=== PATIENT | female | born 1995 | race Caucasian/White ===

== ENCOUNTER 2018-06-06 19:41 | Emergency (ER) | payer SELFPAY ==
[2018-06-06 19:44] VITALS: BP 122/66; PULSE 69; RESP 14; TEMP 36.7; O2SAT 98
--- NOTE | 2018-06-06 19:54 | ED.GENADUL_ITS ---
Discharge Plan Disposition Patient Disposition: HOME Condition: Fair Discharge Details Chief Complaint: Abd Prob Clinical Impression: Abdominal pain, Hypokalemia Primary Care Provider: Angi Chaparro ED Provider: Stacy Brothers Home Meds and New Rx's Prescriptions: Continue albuterol sulfate [ProAir HFA] 8.5 GM HFA aerosol inhaler 2 puff Inhalation Q6H PRN Qty: 1 RF: 6 ibuprofen 600 MG tablet 600 mg PO Q6H PRN Qty: 60 RF: 1 albuterol sulfate 2.5 MG/3 ML solution for nebulization 3 ml UPD QID PRN PRN (Reason: Wheezing) Qty: 60 RF: 0 fluticasone [Flovent HFA] 120 PUFF HFA aerosol inhaler 1 puff Inhalation BID RF: 0 albuterol sulfate 2.5 MG/3 ML solution for nebulization 3 ml UPD Q6H PRN PRNQty: 20 RF: 0 ibuprofen 800 MG tablet 800 mg PO TID PRNQty: 20 RF: 0 Discharge Instructions Instructions: Acute Diarrhea (ED), Abdominal Pain (ED) Additional Instructions: Encourage hydration. You may continue with Mylanta to help with symptomatic relief. Begin Omeprazole 20mg daily. Please follow up with your primary care within the next week for reevaluation if symptoms have not completely resolved. If you develop increased pain, fevers/chillls, inability to stay hydrated or other new/worsening symptoms please seek care urgently once again. Stand Alone Forms: Work Release Referrals: Angi Chaparro [Primary Care Provider] - Medical Decision Making Patient is a 23-year-old female, accompanied by [id number], with chief complaint of abdominal pain. She reports abdominal pain began insidiously last night. Reports it is fairly generalized, worse in the upper aspect of the abdomen on both the left and right sides. Denies any nausea or vomiting. No change in appetite. Denies any change in the discomfort associated with food intake. States she has had a number of loose bowel movements, presently for thus far today. States that she is noted streaks of blood in her stool. Heme -negative exam today. She denies any fevers or chills. Also reports she has been feeling presyncopal on and off today. She does appear slightly dehydrated on exam. Vital signs within normal limits. She appears nontoxic. Patient has history of asthma and GERD. Abdominal discomfort is diffuse. No peritoneal findings. No pain elicited with palpation over the lower quadrants. Seems to be central abdomen and upper quadrants. Laboratory evaluation significant for potassium of 3.0. Otherwise without abnormality. No leukocytosis. Discussed findings with the patient. She reprots that her pain is increasing slightly. Has been using Ibuprofen as home for discomfort. As pain was maximal over the epigastric area, will give GI cocktail. Will also replenish potassium. will give 20meq now, will send her home with another 20 to take in the AM in attempt to avoid GI upset. At this point, with reassuring labs and no focal abnormality on exam, I do not feel that imaging is warranted. As she has been feeling increasingly fatigued with associated diarrhea and abdominal discomfort, I advised that this may be associated with viral illness. Patient reports that her epigastric discomfort is improved after GI cocktail. She reports she still has discomfort along the lateral aspects of discomfort although she is feeling overall improved. Patient has history of GERD but reports she has not been taking any thing for this. States that she has not had her typical reflux symptoms in some time. However, given her location of discomfort and history, I advised beginning daily omeprazole. We discussed new/ wrosening symptoms and when to seek care urgently once again. Advised she contact PCP tomorrow to schedule f/u appointment. All of her questions and concerns were addressed, she is in agreement with this plan. [facility] General Mode of arrival: ambulatory . Date/Time Provider Initiated Documentation: 06/06/18 19:49 . Limitations to Documentation: no limitations . Information obtained by: patient and family . History of Present Illness 23 year old F presents to the emergency department with the chief complaint of abdominal pain, described as moderate, with intensity rated at 4. Quality is described as aching, and is localized to the abdomen. Patient reports no radiation. Patient started experiencing this hour(s) (began this AM) and it has been constant. No relieving factors improve symptom(s), No exacerbating factors reported . Patient notes cough (states she has a small cough associates with asthma, no recent use of inhaler) and other (has had 4 loose bowel movements today); denies chest pain, fever/chills, loss of appetite, nausea/vomiting, rash and shortness of breath. Patient did receive the following treatments prior to arrival, none Related Data Home Medications Medication Instructions Recorded Confirmed albuterol sulfate [ProAir HFA] 2 puff INHALATION Q6H PRN #1 08/26/15 06/06/18 inhaler ibuprofen 600 mg PO Q6H PRN #60 tab-cap 08/26/15 06/06/18 albuterol sulfate 3 ml UPD QID PRN PRN #60 vial 09/01/15 06/06/18 albuterol sulfate 3 ml UPD Q6H PRN PRN #20 vial 09/18/16 06/06/18 fluticasone [Flovent HFA] 1 puff INHALATION BID 09/18/16 06/06/18 ibuprofen 800 mg PO TID PRN #20 tablet 09/18/16 06/06/18 Previous Rx's Medication Instructions Recorded albuterol sulfate 3 ml UPD QID PRN PRN #60 vial 09/01/15 albuterol sulfate 3 ml UPD Q6H PRN PRN #20 vial 09/18/16 ibuprofen 800 mg PO TID PRN #20 tablet 09/18/16 Allergies Allergy/AdvReac Type Severity Reaction Status Date / Time acetaminophen [From Tylenol] Allergy Severe hives Unverified 06/06/18 19:48 amitriptyline AdvReac Intermediate Nausea Unverified 06/06/18 19:48 General Stated Complaint: Abd Prob NIXON: 3 Review of Systems Constitutional Reports as per HPI, Denies chills, Denies fatigue, Denies fever(s) and Denies headache(s) ENT Denies headache(s) Cardiovascular Reports as per HPI, Denies chest pain and Denies dyspnea Respiratory Denies dyspnea Gastrointestinal Reports as per HPI, Reports abdominal pain, Reports melena, Denies bloating, Denies constipation, Reports diarrhea, Denies nausea and Denies vomiting Genitourinary Reports as per HPI, Denies abnormal menses, Denies abnormal vaginal bleeding, Denies urinary incontinence, Denies urinary urgency and Denies vaginal discharge Musculoskeletal Reports as per HPI and Denies back pain Integumentary/Breasts Reports as per HPI and Denies rash Neurologic Denies headache(s) Endocrine Denies fatigue [facility] Medical History Abdominal pain, chronic, right lower quadrant Asthma BMI 40.0-44.9, adult Tobacco use Social History Smoking/Tobacco Use Status: Current every day Surgical History section (06/02/15) Exam Const General: cooperative, healthy appearing, comfortable, no acute distress and well developed Nutritional Appearance: average body habitus and well nourished Orientation: alert and awake [facility] Head: normal to inspection Mouth: moist mucous membranes Resp Effort & Inspection: normal respiratory effort, able to speak in complete sentences and no respiratory distress Auscultation: clear to auscultation bilaterally, no rales, no rhonchi and no wheezes Cardio Rate: regular rate Rhythm: regular rhythm Heart Sounds: S1 normal and S2 normal GI Inspection: normal to inspection, no abdominal wall ecchymosis, no edema, non- distended, obesity and no visible herniation Palpation: soft, no hepatosplenomegaly, not firm, no guarding, no hepatosplenomegaly, no hernias, no masses, not rigid and tender (diffuse across upper and central abdomen. Pain maximal over the epigastric region) in the epigastrum, in the LLQ, in the RLQ and periumbilically; not at McBurney's point , not suprapubicly, Richards's sign negative, psoas sign negative and with no rebound tenderness Percussion: normal to percussion Auscultation: normal bowel sounds Back/Spine/Pelvis Back: no CVA tenderness Skin General skin exam: no rashes or lesions noted Trauma: no lacerations or abrasions Neuro General: alert and awake Cognition: normal cognition Speech: speech normal Gait: normal gait Psych Appearance: grossly normal and well kempt Mental Status: mental status grossly normal Speech and Movement: speech and movement normal Course Vital Signs Temperature 36.7 C 06/06/18 19:44 Pulse 69 06/06/18 19:44 Respiratory Rate 14 06/06/18 19:44 Blood Pressure 122/66 06/06/18 19:44 Pulse Oximetry 98 06/06/18 19:44 Temperature 36.7 C 06/06/18 19:44 Temperature Source Temporal Artery Scan 06/06/18 19:44 Pulse 69 06/06/18 19:44 Respiratory Rate 14 06/06/18 19:44 Respiratory Effort 06/06/18 19:50 Blood Pressure 122/66 06/06/18 19:44 Blood Pressure Position Sitting 06/06/18 19:44 Pulse Oximetry 98 06/06/18 19:44 Oxygen Delivery Method Room Air 06/06/18 19:44 Oxygen Flow Rate 0 06/06/18 19:44 Pain Level 4 06/06/18 19:44
[2018-06-06 20:14] LABS: Bilirubin Negative (Negative); Blood Small (Negative); Clarity Clear; Glucose Negative (Negative); Ketones Negative (Negative); Leukocyte Esterase Negative (Negative); Nitrite Negative (Negative); Specific Gravity 1.025 (1.005-1.025); pH 6.5 (5-8)
[2018-06-06 20:24] LABS: Abs Immature Grans 0.03 k/cumm (0.0-0.09); Absolute Basophil Count 0.15 k/cumm (0.0-0.2); Absolute Eosinophil Count 0.61 k/cumm (0.0-0.7); Absolute Monocyte Count 0.44 k/cumm (0.11-0.7); Absolute Neutrophil Count 4.49 k/cumm (1.2-6.7); Basophils % 1.7; Eosinophils % 6.8; HCT 42.2 % (36.0-46.0); HGB 14.7 g/dL (12.0-15.5); Immature Grans % 0.3; Lymphocytes % 36.6; Mean Corp. HGB Concentration 34.8 g/dL (32.0-36.0); Mean Corpuscular Hemoglobin 27.8 pg (27.0-33.0); Mean Corpuscular Volume 79.9 fL (80-95); Mean Platelet Volume 9.6 fL (8.0-11.0); Monocytes % 4.9; Neutrophils % 49.7; Platelet Count 326 x1000/uL (130-400); RBC 5.28 m/cumm (4.00-5.20); RBC Distribution Width 12.8 % (11.7-14.6); White Blood Cell Count 9.02 k/cumm (4.4-10.8)
[2018-06-06] MEDS: Normal Saline 1,000 ML 1000 ML IV (20:26)
[2018-06-06] MEDS: Normal Saline Flush 10 ML SYR IVP (20:28)
[2018-06-06 20:31] LABS: Bacteria Rare HPF (Negative); C & S Indicated? No; Casts Negative LPF (Negative); Crystals Negative HPF (Negative); Epithelial Cells Moderate HPF (Negative); Mucus Trace (Negative); RBC 0-2 (0-2); WBC 0-2 HPF (0-5)
[2018-06-06 20:37] LABS: ALT 79 U/L (12-78); AST 29 U/L (15-37); Albumin 3.7 g/dL (3.4-5.0); Alkaline Phosphatase 68 U/L (46-116); Anion Gap 11.2 mmol/L (3-11); BUN 8 mg/dL (7-18); Bilirubin, Total 0.3 mg/dL (0.2-1.0); CO2 25.8 mmol/L (21.0-32.0); CREATININE 0.76 mg/dL (0.55-1.02); Calcium 8.5 mg/dL (8.5-10.1); Chloride 105 mmol/L (98-107); Glucose 92 mg/dL (70-100); Lipase 162 U/L (73-393); Magnesium 1.9 mg/dL (1.8-2.4); Potassium 3.7 mmol/L (3.5-5.1); Sodium 142 mmol/L (136-145); Total Protein 7.2 g/dL (6.4-8.2)
[2018-06-06 20:52] LABS: Troponin I < 0.02 ng/mL (0.00-0.06)
[2018-06-06 21:17] VITALS: BP 105/46; PULSE 75; RESP 18; O2SAT 98
[2018-06-06] MEDS: Potassium Chloride 20 MEQ TABCR PO ×2 (21:29→21:52)
[2018-06-06 21:47] VITALS: TEMP 37
== END 2018-06-06 21:51 | disposition home or self-care (01) ==
LOC: ER 22:00
PROVIDERS: Emergency Provider Physician Assistant; PCP Nurse Practitioner
DX: R10.10 Upper abdominal pain, unspecified (principal); E87.5 Hyperkalemia
CPT/HCPCS: 36415; 80053; 81025; 83690; 93005; 96360; 99284; 81003; 81015; 83735; 84484; 85025; 93010

== ENCOUNTER 2020-11-07 03:55 | Outpatient (CLI) | payer MEDICAID, SELFPAY ==
--- NOTE | 2020-11-07 | DI.US_ITS ---
Exam(s) US OB 2-3 TRIMESTER W MOD EXAM: US OB 2-3 TRIMESTER W MOD CLINICAL HISTORY: SURVEY,Z34.90. TECHNIQUE: Transabdominal obstetrical ultrasound performed. COMPARISON: US PELVIS TRANSVAG from 11/07/2015 FINDINGS: Transabdominal obstetrical ultrasound performed. FINDINGS: Number of fetuses: One. position: Breech. heart rate: 147 bpm. Placental location: Posterior. No evidence of previa. BIOMETRIC DATA: Composite Age: 17 weeks 2 days EDC: 04/15/2021 Heart Rate: 147BPM Amniotic fluid index: Amount of fluid is within normal limits. ANATOMICAL SURVEY: The stomach, bladder, kidneys and spine were visualized and are unrema rkable. The patient is scheduled to return on 11/21/2020 to complete the anatomic evaluation. Biometry BPD: 3.7cm consistent with 7 weeks 3 days. HC: 14.0cm consistent with 17 weeks 2 days. AC: 10.9cm consistent with 16 weeks 6 days. FL: 2.6cm consistent with 17 weeks 5 days. IMPRESSION: 1. Single live intrauterine gestation as above. 2. Estimated gestational age is 17 weeks 2 days. 3. The patient is scheduled to return on 11/21/2020 to complete the anatomic evaluation. DATA REPOSITORY:
== END 2020-11-07 04:15 ==
PROVIDERS: PCP Nurse Practitioner; Visit Provider Family Medicine
DX: Z34.92 Encounter for supervision of normal pregnancy, unspecified, second trimester (principal); Z3A.17 17 weeks gestation of pregnancy
CPT/HCPCS: 76805

== ENCOUNTER 2020-11-21 04:32 | Outpatient (CLI) | payer MEDICAID, SELFPAY ==
--- NOTE | 2020-11-21 | DI.US_ITS ---
Exam(s) US OB F/U FACIAL/LVOT/RVOT EXAM: US OB F/U FACIAL/LVOT/RVOT CLINICAL HISTORY: F/U SURVEY,EVALUATE LVOT,RVOT. COMPARISON: US US OB 2-3 TRIMESTER W MOD from 11/07/2020 US US OB 2-3 TRIMESTER W MOD from 11/07/2020 TECHNIQUE: Transabdominal obstetrical ultrasound performed. Limited exam due to maternal habitus. FINDINGS: Sonographic images demonstrate a single intrauterine gestation. Placenta: Posterior. Grade 0. No evidence of previa. Sonographically assessed gestational age is: 19+ 5 weeks. Estimated date of delivery based on this ultrasound is: 12 April 2021 Estimated date of delivery based upon previous ultrasound: 15 April 2021 BPD: 46 millimeters: 20 weeks HC: 162 millimeters, 19 weeks AC: 150 millimeters: 20+ 2 weeks FL: 30 millimeters, 19+ 3 weeks. EFW: 311 grams: 73 percentile heart rate motion is Dopplered at: 147 bpm. Four-chamber heart: Unremarkable. RVOT: Unremarkable. LVOT: Unremarkable. stomach, bladder and kidneys: Normal appearance. nose/lips and palate: Unremarkable. spine: Normal appearance. Posterior fossa, ventricles brain: Unremarkable. Cord insertion and three-vessel cord: Normal. Cervical length 6.1 cm. Amniotic fluid. Amount of fluid is within normal limits. IMPRESSION: Single live intrauterine gestation. No abnormalities are identified. Resolution of blank sharad is somewhat limited by maternal body habitus. DATA REPOSITORY:
== END 2020-11-21 04:52 ==
PROVIDERS: PCP Nurse Practitioner; Visit Provider Family Medicine
DX: Z34.92 Encounter for supervision of normal pregnancy, unspecified, second trimester (principal); Z3A.19 19 weeks gestation of pregnancy
CPT/HCPCS: 76815